=== PATIENT | female | born 1945 | race Caucasian/White ===

== ENCOUNTER 2023-02-07 10:36 | Emergency (ER) | payer MEDICARE, OTHER ==
[2023-02-07] MEDS ORDERED: Morphine 4 MG/ML VIAL ONE ×2 (11:16→13:53)
[2023-02-07] MEDS ORDERED: Ondansetron PF 4 MG/2 ML Vial ONE (11:16)
[2023-02-07 11:30] LABS: #Monocytes 0.7 10x3/uL (0.0-1.1); #Neutrophils 6.9 10x3/uL (1.5-8.4); %Basophils 0.2 % (0.0-2.0); %Eosinophils 0.3 % (0.0-6.0); %Lymphocytes 10.6 % (18.0-47.0); %Monocytes 7.6 % (0.0-10.0); %Neutrophils 80.4 % (40.0-75.0); Hematocrit 37.1 % (34.9-44.5); Hemoglobin 12.4 g/dL (12.0-15.5); Mean Corpuscular HGB CONC 33.4 g/dL (32.0-36.0); Mean Corpuscular Volume 83.7 fl (81.6-98.3); Mean Platelet Volume 9.7 fl (7.4-10.4); Platelet Count 198 10x3/uL (150-450); RBC Distribution Width 14.6 % (11.5-14.5); Red Blood Cell (RBC) Count 4.43 10x6/uL (3.90-5.03); White Blood Cell (WBC) Count 8.6 10x3/uL (3.5-10.5)
[2023-02-07 11:37] LABS: INR-International Normal Ratio 1.1; PTT 28.5 sec (22.0-33.0); Prothrombin Time 11.4 sec (9.5-12.1)
[2023-02-07 11:39] LABS: ALT (SGPT) 32 U/L (8-55); AST (SGOT) 52 U/L (5-34); Albumin 4.4 g/dL (3.4-4.8); Alkaline Phosphatase 57 U/L (40-110); Anion Gap 16 mmol/L (10-20); BUN (Urea Nitrogen) 9 mg/dL (9.8-20.1); Bilirubin, Total 0.6 mg/dL (0.2-1.2); Calc. Creatinine Clearance 0 mL/min (70-130); Calcium 9.1 mg/dL (7.8-10.44); Carbon Dioxide 22 mmol/L (23-31); Chloride 106 mmol/L (98-107); Estimated GFR 78; Globulin 2.6 g/dL (2.4-3.5); Glucose 116 mg/dL (83-110); Lipase 32 U/L (8-78); Potassium 3.6 mmol/L (3.5-5.1); Sodium 140 mmol/L (136-145)
[2023-02-07 11:43] LABS: Troponin I Less than 0.010 ng/mL (< 0.028)
[2023-02-07] MEDS ORDERED: Iopamidol 300 61% 100 ML VIAL FS ONE (13:43)
[2023-02-07] MEDS ORDERED: Lidocaine 4% Patch TD SCH (14:00)
== END 2023-02-07 14:45 | disposition home or self-care (01) ==
LOC: CSHERS 10:36
DX: S22.20XA Unspecified fracture of sternum, initial encounter for closed fracture (principal); S22.019A Unspecified fracture of first thoracic vertebra, initial encounter for closed fracture; V43.52XA Car driver injured in collision with other type car in traffic accident, initial encounter
CPT/HCPCS: 36415; 70450; 71260; 72125; 74177; 80053; 83690; 84484; 85025; 85610; 85730; 93005; 94760; 96374; 96375; 96376; J2270; J2405; Q9967